=== PATIENT | male | born 1975 | race African-American/Black ===

== ENCOUNTER 2022-12-18 08:21 | Day surgery (SDC) | payer OTHER ==
[2022-12-14 15:13] VITALS: BMI 33.7
[2022-12-18] MEDS ORDERED: AMPICILLIN - 2 GM in SODIUM CHLORIDE 100 ML IVPB ONE (08:30)
[2022-12-18] MEDS ORDERED: GENTAMICIN SO4 80 MG/2 ML VIAL ONE (08:38)
[2022-12-18] MEDS ORDERED: GENTAMICIN SO4 80 MG/2 ML VIAL IVPB ONE (08:40)
[2022-12-18] MEDS ORDERED: AMPICILLIN SODIUM 1 GM VIAL IVPB ONE (09:15)
[2022-12-18 13:34] VITALS: TEMP 97.8
[2022-12-18 13:41] VITALS: BP 102/66; PULSE 68; RESP 16
== END 2022-12-18 11:10 | disposition home or self-care (01) ==
LOC: FASU-ENDO 08:21
PROVIDERS: ATTEND Internal Medicine Gastroenterology
PROC: 0DJD8ZZ Inspection of Lower Intestinal Tract, Via Natural or Artificial Opening Endoscopic (ICD-10-PCS; principal; 2022-12-18 10:16)
DX: Z12.11 Encounter for screening for malignant neoplasm of colon (principal); Z80.0 Family history of malignant neoplasm of digestive organs